=== PATIENT | female | born 1935 | race Two or more races ===

== ENCOUNTER 2019-10-27 04:48 | Emergency (ER) | payer SELFPAY ==
[~2019-10-27] VITALS: Ht 165.1 cm; Wt 115.0 kg
[2019-10-27 04:50] VITALS: BP 94/56
[2019-10-27] MEDS ORDERED: EPINEPHrine 1:1,000 [1 MG/ML] AMP ONE (05:07)
== END 2019-10-27 10:24 | disposition expired ==
LOC: EMS 04:48
DX: I46.9 Cardiac arrest, cause unspecified (principal); U07.1 COVID-19
CPT/HCPCS: 92950; 99285; J0171; U0003